=== PATIENT | male | born 1960 | race Caucasian/White ===

== ENCOUNTER 2024-12-15 18:15 | Emergency (ER) | payer BC, SELFPAY ==
[2024-12-15 18:20] VITALS: BP 155/89
[2024-12-15 18:42] LABS: Hematocrit 42.6 % (39.0-52.0); Hemoglobin 14.8 g/dL (13.0-18.0); Mean Corp Hgb Conc. 34.7 g/dL (33.0-37.0); Mean Corpuscular Volume 88.9 fL (80.0-94.0); Nucleated Red Blood Cells % 0 % (-); Platelet Count 201 10^3/uL (130-400); Red Cell Dist. Width 11.8 % (11.5-14.5)
[2024-12-15 18:56] LABS: ALT (SGPT) 24 U/L (0-50); AST (SGOT) 26 U/L (17-59); Albumin 4.2 g/dl (3.5-5.0); Alkaline Phosphatase 54 U/L (38-126); Blood Urea Nitrogen 20 mg/dl (9-20); Calcium 9.4 mg/dl (8.4-10.2); Carbon Dioxide 24 mmol/L (22-30); Chloride 110 mmol/L (98-107); Glucose 109 mg/dl (70-99); Potassium 4.1 mmol/L (3.5-5.1); Sodium 141 mmol/L (135-145); Total Protein 7.0 g/dl (6.3-8.2); eGFR > 60.00
[2024-12-15 19:02] VITALS: BMI 27.8
[2024-12-15 19:05] VITALS: BP 141/90
[2024-12-15 19:23] LABS: Troponin I < 0.012 ng/ml
[2024-12-15 20:00] VITALS: BP 140/89
--- NOTE | 2024-12-15 20:21 | ED.GENMED ---
History of Present Illness
General
Chief Complaint: Chest Pain
Source: patient
Exam Limitations: none
Time Seen by Provider: 12/15/24 19:54
Nursing documentation reviewed up to this point in time: agreed with
History of Present Illness
History of Present Illness:
Patient with history of hypertension on losartan, presents to ED secondary to chest pain over the past 4 days, which is worsened today in severity and duration. Chest pain described as stabbing/pressure, with radiation to the jaw and left upper
back, without alleviating or exacerbate this. Denies associated shortness of breath. Denies nausea or vomiting. Denies dizziness. Denies trauma. Denies recent change activities. Denies recent travel or surgery. Denies leg pain or swelling.
Denies recent illness. Denies recent weight changes. Patient drinks socially and quit smoking long time ago. There is no family history of heart disease. There is no family history of blood clots.
Review of Systems
Review of Systems
Allergies reviewed?: Yes
All Other Systems: ROS reviewed and negative except as documented in HPI and ROS
Constitutional: Reports no symptoms
Respiratory: Reports no symptoms
Cardiac: Reports chest pain
ABD/GI: Reports no symptoms
Musculoskeletal: Reports no symptoms
Skin: Reports no symptoms
Neurological: Reports no symptoms
Phy Exam
Physical Exam
Physical Exam:
Physical Exam
General: mild distress, not acutely ill. afebrile
Head: nc/at. eomi
Neck: supple. no meningeal signs.
Heart: s1/s2 regular rate and rhythm
Lungs: no acute respiratory distress. clear bilaterally. mild left upper chest wall tenderness to palpation
Abdomen: normal bowel sounds. not tender.
Neuro: alert and oriented x 3. no focal neurological deficits
Skin: no rash
Psychiatric: well kept. interactive and cooperative
Extremities: no edema. no calf tenderness.
Scores
Heart Score for Chest Pain Patients
STEMI patient?: No
History: Slightly or Non-Suspicious
ECG: Normal
Age: >45 - <65 years
Risk Factors: 1 or 2 Risk Factors
Troponin: </= Normal Limit
Heart Score for Chest Pain Patients: 2
Heart Score Risk: 2.5% MACE over next 6 weeks
Course
Orders/Labs/Results
Orders:
Orders
12/15/24 18:15
Electrocardiogram (*1) Urgent
Reason for Study: Chest Pain
EKG- Treatment ONCE
12/15/24 18:25
CR Chest - 2 Views Urgent
Comment:
Reason For Exam: pain
12/15/24 18:31
Complete Blood Count/With Diff Urgent
Comprehensive Metabolic Panel Urgent
Troponin I Urgent
12/15/24 20:16
Ketorolac [Toradol] 30 mg IV NOW STA
12/15/24 20:34
D-Dimer Urgent
12/15/24 21:24
Electrocardiogram (*1) Urgent
Reason for Study: Chest Pain
EKG- Treatment ONCE
12/15/24 21:33
Troponin I Urgent
Abnormal Lab Results
12/15/24
18:31
MPV 10.7 H fL
(7.4-10.4)
Absolute Monos (auto) 1.0 H 10^3/uL
(0.1-0.6)
Monocytes % 10.7 H %
(1.7-9.3)
Chloride 110 H mmol/L
(98-107)
Glucose 109 H mg/dl
(70-99)
12/15/24 18:31
12/15/24 18:31
Vital Signs
Initial and Last Documented VS:
Initial Vital Signs
Temp Pulse Resp BP Pulse Ox
97.6 F 74 16 155/89 97
12/15/24 18:20 12/15/24 18:20 12/15/24 18:20 12/15/24 18:20 12/15/24 18:20
Last Documented Vital Signs
Temp Pulse Resp BP Pulse Ox
97.6 F 69 18 136/86 93
12/15/24 18:20 12/15/24 23:00 12/15/24 23:00 12/15/24 23:00 12/15/24 23:00
MDM/Problems Addressed
MDM/Problems Addressed:
Patient with an unremarkable workup in ED, including repeat blood work, i.e. troponin and EKG. D-dimer negative. Patient reports mild improvement after administration of Toradol. Upon reevaluation, patient states that his symptoms definitely
appears to be positional. Discussed treatment options with patient and spouse, including potential admission to the hospital for cardiac consultation. However, at this time, patient prefers to go home for an outpatient consultation. As such,
return precautions provided and patient referred to cardiology for chest pain hotline. Patient is otherwise afebrile, hemodynamically stable, and appears comfortable, at time of discharge, to the care of his spouse.
*Pulse Oximetry
SaO2: 95
Oxygen Mode of Delivery: Room air
Patient hypoxic: no
*EKG
Interpreted by ED Provider?: Yes
EKG Intrepretation Date: 12/15/24
Heart Rate: 72
Rate: normal
Rhythm: sinus
[place]: normal axis
Interval: normal interval
*Critical Care Note
Total Time (30-74mins, 75-104mins- exclusive of procedures): Not Applicable
ED Attending Note
-
Portions of this chart may have been created with voice recognition software.� Occasional wrong word or��sound alike� substitutions may have occurred due to the inherent limitations of voice recognition software.
Discharge Plan
Departure
Patient Disposition: Home (Routine Discharge)
Date of Disposition: 12/15/24
Time of Disposition: 23:13
Patient with high blood pressure during this ER visit?: Yes
Condition: Good
Discharge Problem:
Chest pain
Instructions: Chest Pain CBC Follow Up
Referrals:
Orville Jacobo MD [Active, Cardiology]
Ulises Bridges DO [Family Provider, Internal Medicine]
Activity Restrictions/Additional Instructions:
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 Please consider return to ED with worsening symptoms.
Interventions
Interventions:
*Risk Screen - Suicide Last Done: 12/15/24 18:20
*General Assessment Last Done: 12/15/24 18:20
*Neglect/Abuse Screening Last Done: 12/15/24 18:20
*ED- Fall Risk Assessment Last Done: 12/15/24 18:20
*ED COVID-19 Vaccine History Last Done: 12/15/24 18:20
*Nursing Disposition Last Done: 12/15/24 23:18
ED- Cardiac Assessment Last Done: 12/15/24 19:10
Discharge Date and Time
Discharge Date/Time: 12/15/24 23:19
Print Language: [id number]
[2024-12-15] MEDS: TORADOL 30 MG IV (20:36)
[2024-12-15 20:55] LABS: D-Dimer < 0.27 ug/mlFEU (0.00-0.50)
[2024-12-15 21:00] VITALS: BP 125/92
[2024-12-15 22:00] VITALS: BP 132/85
[2024-12-15 22:06] LABS: Troponin I < 0.012 ng/ml
[2024-12-15 23:00] VITALS: BP 136/86
== END 2024-12-15 23:19 | disposition home or self-care (01) ==
LOC: EMR 18:15
PROVIDERS: Emergency Medicine; EMERGENCY PHYSICIAN Emergency Medicine; FAMILY PHYSICIAN Internal Medicine
DX: R07.9 Chest pain, unspecified (principal); I10 Essential (primary) hypertension; Z87.891 Personal history of nicotine dependence; Z79.899 Other long term (current) drug therapy
CPT/HCPCS: 96374; 99285; 71046; 80053; 84484; 85025; 85379; 93005

== ENCOUNTER → 2025-02-09 14:53 | Outpatient (REF) | payer BC, SELFPAY | LOC: HWRCS 14:53 | PROVIDERS: ATTENDING PHYSICIAN Internal Medicine; FAMILY PHYSICIAN Internal Medicine | DX: R07.9 Chest pain, unspecified (principal); Z87.891 Personal history of nicotine dependence | CPT/HCPCS: 93306 ==

== ENCOUNTER → 2025-02-14 08:34 | Outpatient (REF) | payer BC, SELFPAY | LOC: HWRCS 08:34 | PROVIDERS: ATTENDING PHYSICIAN Internal Medicine; FAMILY PHYSICIAN Internal Medicine | DX: R07.9 Chest pain, unspecified (principal) | CPT/HCPCS: 78452; 93017; A9500 ==